=== PATIENT | female | born 1990 | race Caucasian/White ===

== ENCOUNTER 2016-12-29 06:00 | Inpatient (IN) | payer OTHER ==
--- NOTE | 2016-12-28 06:38 | P.HPOB ---
History of Present Illness H&P Date: 12/28/16 Chief Complaint: Patient is presenting for repeat section and tubal ligation. This patient is a pleasant 26-year-old 2 para 1 female estimated date of confinement 01/01/2017 estimated gestational age 39-4/7 weeks gestation who presents to labor and delivery for repeat section is also requesting tubal ligation. Patient's history is such that she presented to me for care in June. She had her first elsewhere and had a macrosomic and I had concerns for undiagnosed gestational diabetes with that . Patient apparently never had glucose testing that . Testing this has shown she does have gestational diabetes and she's been managed by maternal medicine and was placed on insulin. Patient's been followed by them for testing as well as here and now she is presenting for requested repeat section and she also wants permanent sterilization. Patient's has also been complicated by tobacco use. Review of Systems Constitutional: Denies chills, Denies fever Cardiovascular: Denies chest pain, Denies shortness of breath Respiratory: Denies cough Gastrointestinal: Reports heartburn Genitourinary: Reports Menstruation: Reports amenorrhea Past Medical History Past Medical History: Asthma, GERD/Reflux, Thyroid Disorder Additional Past Medical History / Comment(s): gestational diabetes insulin- dependent., kidney stones History of Any Multi-Drug Resistant Organisms: None Reported Past Surgical History: Section, Cholecystectomy Additional Past Surgical History / Comment(s): stent for kidney stones Past Anesthesia/Blood Transfusion Reactions: Family History of Problems w/ Anesthesia Additional Past Anesthesia/Blood Transfusion Reaction / Comment(s): brother- hard time waking up Past Psychological History: No Psychological Hx Reported Smoking Status: Current every day smoker Past Alcohol Use History: None Reported Past Drug Use History: None Reported - Past Family History Mother Family Medical History: No Reported History Medications and Allergies Home Medications Medication Instructions Recorded Confirmed Type No Known Home Medications [No 12/27/16 12/27/16 History Known Home Medications] Allergies Allergy/AdvReac Type Severity Reaction Status Date / Time Penicillins Allergy throat Verified 12/27/16 14:13 swells, diff breathing Exam - Vital Signs Vital signs: Intake and Output 12/27/16 12/27/16 12/28/16 14:59 22:59 06:59 Other: Weight 110.677 kg Patient Weight 12/28/16 06:59 Weight 110.677 kg - OBG Physical Exam Abdomen: bowel sounds normal (Obese), no diffuse tenderness, no bruit present, no guarding noted, no hepatomegaly, no splenomegaly, no mass Vulva: both: normal Vagina: normal moisture, no discharge Uterus: enlarged (Fundal height in the office was 43 cm) Results blood work shows she is A positive, rubella immune, RPR nonreactive, hepatitis B negative, HIV nonreactive, group B strep was negative, Glucola and three-hour GTT were abnormal, most recent ultrasound by maternal medicine showed a macrosomic with polyhydramnios. Patient's had normal biophysical profiles and nonstress testing. Assessment and Plan Assessment: This is a pleasant 26-year-old 2 para 1 female 39-4/7 weeks gestation with insulin-dependent gestational diabetes, previous section desires repeat section and permanent sterilization. Patient also has some issues with compliance and tobacco use. Plan is repeat low transverse section and bilateral partial salpingectomy. This patient does understand that a tubal ligation is a permanent procedure however there is a failure rate of approximately 20 per thousand procedures done. Patient also understands that surgery itself has risks including risks of infection, bleeding, possibility of bowel, bladder, vessels, and other organs. She understands she is at increased risk of surgical complications secondary to her diabetes and obesity. Patient understands risk of DVT and pulmonary embolism. All the patient's questions have been answered and a written consent is obtained. (1) Previous delivery affecting Status: Acute Code(s): O34.219 - MATERNAL CARE FOR UNSP TYPE SCAR FROM PREVIOUS DEL SNOMED Code(s): 312587930 (2) Gestational diabetes Status: Acute Code(s): O24.419 - GESTATIONAL DIABETES MELLITUS IN , UNSP CONTROL SNOMED Code(s): 93065604 (3) Family planning advice Status: Acute Code(s): Z30.09 - ENCOUNTER FOR OTH GENERAL CNSL AND ADVICE ON CONTRACEPTION SNOMED Code(s): 46960786
[2016-12-29 06:23] LABS: Glucose,Whole Blood 98 mg/dL (75-99)
[2016-12-29] MEDS ORDERED: LACTATED RINGERS 1,000 ML IV ONE (06:24)
[2016-12-29] MEDS ORDERED: LACTATED RINGERS 1,000 ML IV SCH (06:24)
[2016-12-29] MEDS ORDERED: CITRIC ACID-SODIUM CITRATE 15 ML CUP PO ONE (06:24)
[2016-12-29 06:30] VITALS: BMI 44.4
[2016-12-29 07:03] LABS: Basophils % (A) 0 %; CH 30.1; CHCM 33.3; Eosinophils # (A) 0.1 k/uL (0-0.7); Eosinophils % (A) 1 %; HCT 34.7 % (34.0-46.0); HDW 3.06; HGB 11.4 gm/dL (11.4-16.0); Luc # (Auto) 0.11; Luc % (Auto) 1; Lymphocytes # (A) 3.1 k/uL (1.0-4.8); Lymphocytes % (A) 30 %; MCH 29.9 pg (25.0-35.0); MCHC 32.8 g/dL (31.0-37.0); MCV 91.2 fL (80.0-100.0); Monocytes # (A) 0.6 k/uL (0-1.0); Monocytes % (A) 6 %; Neutrophils # (A) 6.5 k/uL (1.3-7.7); Neutrophils % (A) 62 %; RDW 15.7 % (11.5-15.5); WBC 10.5 k/uL (3.8-10.6); WBC (Perox) 11.04
[2016-12-29] MEDS: CLINDAMYCIN 900 MG in DEXTROSE 5% IN WATER 50 ML IVPB SCH ×6 (07:19→22:53)
[2016-12-29] MEDS ORDERED: ePHEDrine SULFATE/0.9% NACL/PF 50 MG/5 ML SYRINGE IV ONE (07:44)
[2016-12-29] MEDS ORDERED: ONDANSETRON 4 MG/2 ML VIAL ONE (07:44)
[2016-12-29] MEDS ORDERED: OXYTOCIN 10 UNIT/ML 1 ML VIAL ONE (07:44)
[2016-12-29] MEDS ORDERED: LACTATED RINGERS 1,000 ML BAG IV ONE (07:44)
[2016-12-29] MEDS ORDERED: MORPHINE SULFATE (PF) 0.3 MG/0.3 ML SYR ONE (07:44)
[2016-12-29] MEDS ORDERED: NALBUPHINE 10 MG/ML AMPUL ONE (07:44)
--- NOTE | 2016-12-29 08:42 | P.OP ---
Date of Procedure: 12/29/16 Preoperative Diagnosis: #1: 39-4/7 week . #2 previous low transverse section desires repeat #3: Multi parity desires permanent sterilization #4: Gestational diabetes , insulin-dependent Postoperative Diagnosis: Same Procedure(s) Performed: Repeat low transverse section and bilateral partial salpingectomy. Anesthesia: spinal Surgeon: Jone Boswell Lobby Concierge #1: Fabian Regalado Estimated Blood Loss (ml): 600 Pathology: other (Placenta and bilateral fallopian tube segments) Condition: stable Disposition: floor Indications for Procedure: Please see dictated H&P for intimate details of this patient's admission. In brief summary this is a pleasant 26-year-old 2 para 1 female 39-4/7 weeks gestation who is admitted to labor and delivery for elective repeat section and tubal ligation. Patient does understand that a tubal ligation is a permanent procedure however there is approximately 20 out of 1000 chance of failure. Patient understands surgery itself has risks including risks of infection, bleeding, possible injury bowel, bladder, vessels, and/or other organs. Patient understands risk of DVT and pulmonary embolism. All the patient's questions are answered and a written consent was obtained Operative Findings: This is a vigorous viable male infant Apgars 8 and 9 at 0810 hrs. 's weight was 4530 g or 10 pounds. Description of Procedure: This patient has a Rutledge catheter placed to straight drain. She subsequently taken to the operating room where she sat up and spinal anesthetic is administered without incident. With an adequate level of anesthesia she has abdominal prep and drape. At this time I look at her abdomen she has a previous incision is up fairly high so we make this incision the usual position of a Pfannenstiel skin incision. A second scalpel is taken down the fascia and the fascia scored with a knife. Fascial incision extended bilaterally using the Jaramillo scissors. Fascia is dissected off the rectus muscles sharply. Rectus muscles are already the peritoneum was identified and entered sharply. Peritoneal incision extended superior and inferior without difficulty. Bladder peritoneum was then taken down sharply. Scalpels and taken a low transverse uterine incision is then made. At this time is a loss of a large amount of amniotic fluid. The infant's head is then guided to the incision with fundal pressure delivered. Mouth and nares are bulb suctioned and there is no evidence of a nuchal cord. We then have delivery anterior posterior shoulder and rest this 's body. This is a vigorous viable male infant Apgars are 8 and 9 delivery time was 0810 hours. After delivery of the infant the umbilical cord is doubly clamped and cut infant is handed off to the nurses in attendance. The placenta is then manually extracted intact. Uterus is then externalized and uterine incision demarcated with Mckeon clamps. Uterine incision then closed using 0 Vicryl running locked fashion 2 layers. Excellent hemostasis is noted I then turned my attention a left fallopian tube and approximately 4 cm from the cornual insertion a small window is made to the mesial salpinx with Bovie cautery. Using a 2-0 silk I doubly ligate a piece the tube on each side and a 1-2 cm segment of the tube was excised. Cauterization is then done of the tubal ends and excellent hemostasis is noted. Turned my attention of the right fallopian tube and using a similar technique as segment of the right fallopian tube was removed. With this done the excess fluid is removed from the abdomen and pelvis uterus placed back into the abdomen inspect the tubes once again there are still hemostatic and so was the uterine incision. The parietal peritoneum was then identified and closed using 0 Vicryl running fashion. The rectus muscles are reapproximated in 0 Vicryl interrupted fashion. The fascia is then closed using 0 PDS. Fascial incision is intact and hemostatic. Subcutaneous tissues and closed using a 3-0 Vicryl. Skin is and closed using chastity. All counts are correct 3. There are no complications. Infant and mother are taken birthing suite in satisfactory condition.
[2016-12-29] MEDS ORDERED: SIMETHICONE 80 MG CHEWABLE PO PRN (08:50)
[2016-12-29] MEDS ORDERED: OXYTOCIN 20 UNITS/1000 ML NS 1,000 ML IV SCH (08:50)
[2016-12-29] MEDS ORDERED: ACETAMINOPHEN TAB 325 MG TAB PO PRN (08:50)
[2016-12-29] MEDS ORDERED: diphenhydrAMINE 25 MG CAP PO PRN (08:50)
[2016-12-29] MEDS ORDERED: Acetaminophen-Codeine 300-30mg TAB PO PRN ×2 (08:50)
[2016-12-29] MEDS ORDERED: ONDANSETRON 4 MG/2 ML VIAL IVP PRN (08:50)
[2016-12-29] MEDS ORDERED: NALOXONE 0.4 MG/ML 1 ML VIAL IV PRN ×2 (08:50→12:38)
[2016-12-29] MEDS ORDERED: METOCLOPRAMIDE 5 MG/ML 2 ML VIAL IVP PRN ×2 (08:50→12:38)
[2016-12-29] MEDS ORDERED: ZOLPIDEM 5 MG TAB PO PRN (08:50)
[2016-12-29] MEDS ORDERED: diphenhydrAMINE 50 MG/ML 1 ML VIAL IVP PRN ×2 (08:50→12:38)
[2016-12-29] MEDS: SENNOSIDES-DOCUSATE SODIUM 1 EACH TAB PO SCH ×2 (09:53→19:56)
[2016-12-29] MEDS: LACTATED RINGERS 1,000 ML IV SCH ×2 (09:53→18:44)
[2016-12-29 11:11] LABS: ALT 25 U/L (9-52); AST 16 U/L (14-36); Blood Urea Nitrogen 8 mg/dL (7-17); LDH 404 U/L (313-618); Non-African American GFR(MDRD) >60 (>60 ml/min/1.73 sqM); Uric Acid 4.8 mg/dL (3.7-7.4)
[2016-12-29 11:12] LABS: Appearance,Urine Clear (Clear); Bilirubin,Urine Negative (Negative); Glucose,Urine (UA) Negative (Negative); Ketones,Urine Negative (Negative); Leukocyte Esterase,Urine Moderate (Negative); Nitrite,Urine Negative (Negative); Particle Count 826; Protein,Urine Negative (Negative); RBC,Urine 1 /hpf (0-5); Specific Gravity,Urine 1.006 (1.001-1.035); UA Billing (MACRO vs. MICRO) MICRO; Urobilinogen,Urine <2.0 mg/dL (<2.0); WBC,Urine 36 /hpf (0-5)
[2016-12-29] MEDS ORDERED: KETOROLAC 30 MG/ML 1 ML VIAL IVP PRN (12:38)
[2016-12-29] MEDS ORDERED: NALBUPHINE 10 MG/ML AMPUL IV PRN (12:38)
[2016-12-29] MEDS ORDERED: MORPHINE SULFATE 4 MG/ML SYRINGE IVP PRN (12:38)
[2016-12-29] MEDS: KETOROLAC 30 MG/ML 1 ML VIAL IVP PRN ×2 (15:53→23:06)
[2016-12-30] MEDS: LACTATED RINGERS 1,000 ML IV SCH (01:37)
[2016-12-30] MEDS: KETOROLAC 30 MG/ML 1 ML VIAL IVP PRN (07:26)
--- NOTE | 2016-12-30 07:30 | P.PNOBGPC ---
Subjective - Subjective Patient reports: Reports appetite normal, Reports voiding normally, Reports pain well controlled, Reports ambulating normally : doing well Objective - Vital Signs Latest vital signs: Vital Signs Temp Pulse Resp BP Pulse Ox 12/30/16 05:42 14 98 12/30/16 04:00 98.2 F 86 16 122/75 97 12/30/16 01:37 16 12/29/16 23:54 98.1 F 84 16 117/67 98 12/29/16 22:00 16 12/29/16 20:00 98.1 F 73 16 121/61 98 12/29/16 17:00 16 12/29/16 15:58 97.4 F L 81 20 129/82 98 12/29/16 15:30 81 12/29/16 15:28 20 98 12/29/16 13:38 17 12/29/16 12:38 16 12/29/16 12:00 97.4 F L 71 20 145/78 98 12/29/16 10:37 97.3 F L 65 132/68 98 12/29/16 10:07 81 18 156/69 12/29/16 09:37 81 18 133/65 99 12/29/16 09:22 73 17 144/69 99 12/29/16 09:07 77 16 153/70 100 12/29/16 08:52 86 18 132/66 98 12/29/16 08:37 97.2 F L 87 17 132/70 99 Intake and Output 12/29/16 12/30/16 12/30/16 22:59 06:59 14:59 Intake Total 100 Output Total 950 500 Balance -950 -400 Intake: Intake, IV Titration 100 Amount Clindamycin 900 mg In 100 Dextrose 5% in Water 50 ml @ 100 mls/hr IVPB Q8HR [facility], [facility] Rx#:[id number] Output: Urine 950 500 Other: Voiding Method Indwelling Catheter # Voids 1 - Exam Lungs: bilateral: normal Chest: Normal S1, Normal S2 Extremities: Present: normal Abdomen: Present: normal appearance, soft. Absent: distention, tenderness Incision: Present: normal, dry, intact Uterus: Present: normal, firm - Labs Labs: Abnormal Lab Results - Last 24 Hours (Table) 12/29/16 Range/Units 11:00 Ur Leukocyte Esterase Moderate H (Negative) Urine WBC 36 H (0-5) /hpf Assessment and Plan Assessment: Postoperative day #1. Patient is resting without complaints. Vital signs are stable she's afebrile. Uterus is firm nontender and her incision is intact and dry. My impression this is a normal postoperative course. Plan is check a CBC today. Encourage ambulation, and continue routine postoperative care. (1) Previous delivery affecting Current Visit: Yes Status: Acute Code(s): O34.219 - MATERNAL CARE FOR UNSP TYPE SCAR FROM PREVIOUS DEL SNOMED Code(s): 686160966 (2) Gestational diabetes Current Visit: Yes Status: Acute Code(s): O24.419 - GESTATIONAL DIABETES MELLITUS IN , UNSP CONTROL SNOMED Code(s): 73695397 (3) Family planning advice Current Visit: Yes Status: Acute Code(s): Z30.09 - ENCOUNTER FOR OTH GENERAL CNSL AND ADVICE ON CONTRACEPTION SNOMED Code(s): 46633657
[2016-12-30 08:03] LABS: Basophils % (A) 0 %; CH 29.7; CHCM 33.3; Eosinophils # (A) 0.1 k/uL (0-0.7); Eosinophils % (A) 1 %; HCT 30.3 % (34.0-46.0); HDW 3.05; Luc # (Auto) 0.09; Luc % (Auto) 1; Lymphocytes # (A) 2.2 k/uL (1.0-4.8); Lymphocytes % (A) 24 %; MCH 29.6 pg (25.0-35.0); MCHC 32.9 g/dL (31.0-37.0); MCV 89.7 fL (80.0-100.0); Mean Platelet Volume 8.9; Monocytes # (A) 0.5 k/uL (0-1.0); Monocytes % (A) 6 %; Neutrophils # (A) 6.3 k/uL (1.3-7.7); Neutrophils % (A) 69 %; RBC 3.38 m/uL (3.80-5.40); RDW 15.1 % (11.5-15.5); WBC 9.1 k/uL (3.8-10.6)
[2016-12-30] MEDS: SENNOSIDES-DOCUSATE SODIUM 1 EACH TAB PO SCH ×2 (09:06→19:52)
--- NOTE | 2016-12-30 13:44 | P.PN ---
Progress Note - Text Date:12/30 Time:1304pm Patient is status post . Patient seen this morning with VAS score of 1.no c/o of pruritus, no c/o nausea/vomiting, comfortable and doing well.
[2016-12-30] MEDS: IBUPROFEN 600 MG TAB PO PRN ×2 (14:19→23:43)
--- NOTE | 2016-12-31 07:14 | P.PNOBGPC ---
Subjective - Subjective Patient reports: Reports appetite normal, Reports voiding normally, Reports pain well controlled, Reports ambulating normally : doing well Objective - Vital Signs Latest vital signs: Vital Signs Temp Pulse Resp BP Pulse Ox 12/31/16 00:00 97.3 F L 83 16 134/82 12/30/16 16:00 98.0 F 89 16 133/79 98 12/30/16 10:00 18 12/30/16 08:00 98.2 F 82 16 104/69 96 Intake and Output 12/30/16 12/31/16 12/31/16 22:59 06:59 14:59 Other: # Voids 1 1 - Exam Lungs: bilateral: normal Chest: Normal S1, Normal S2 Extremities: Present: normal Abdomen: Present: normal appearance, soft. Absent: distention, tenderness Incision: Present: normal, dry, intact Uterus: Present: normal, firm - Labs Labs: Abnormal Lab Results - Last 24 Hours (Table) 12/30/16 Range/Units 07:44 RBC 3.38 L (3.80-5.40) m/uL Hgb 10.0 L (11.4-16.0) gm/dL Hct 30.3 L (34.0-46.0) % Assessment and Plan Assessment: Post operative day #2. Patient is resting without complaints and wishes to go home. Vital signs are stable she is afebrile. Uterus is firm nontender and she is having normal lochia. Her incision is intact and dry. My impression is that this is a normal post operative course. Plan is to continue routine postoperative care discharge home later today (1) Previous delivery affecting Current Visit: Yes Status: Acute Code(s): O34.219 - MATERNAL CARE FOR UNSP TYPE SCAR FROM PREVIOUS DEL SNOMED Code(s): 016458241 (2) Gestational diabetes Current Visit: Yes Status: Acute Code(s): O24.419 - GESTATIONAL DIABETES MELLITUS IN , UNSP CONTROL SNOMED Code(s): 62141151 (3) Family planning advice Current Visit: Yes Status: Acute Code(s): Z30.09 - ENCOUNTER FOR OTH GENERAL CNSL AND ADVICE ON CONTRACEPTION SNOMED Code(s): 50842386
--- NOTE | 2016-12-31 07:17 | P.DS ---
Providers Date of admission: 12/29/16 06:00 Expected date of discharge: 12/31/16 Attending physician: Jone Boswell Primary care physician: Stated None - Discharge Diagnosis(es) (1) Previous delivery affecting Current Visit: Yes Status: Acute (2) Gestational diabetes Current Visit: Yes Status: Acute (3) Family planning advice Current Visit: Yes Status: Acute Hospital Course: Please see dictated H&P for intimate details of this patient's admission. Brief summary this is a pleasant 26-year-old 2 para 1 female 39-1/2 weeks gestation admitted for repeat section and tubal ligation. Patient is admitted undergoes above-named surgery. Postoperatively were 2 patient's felt be stable for discharge home follow up with me in 1 week. Procedures: Repeat low transverse section and bilateral partial salpingectomy. Patient Condition at Discharge: Good Plan - Discharge Summary New Discharge Prescriptions: New Acetaminophen-Codeine 300-30mg [Tylenol w/codeine #3] 1 - 2 each PO Q4HR PRN #30 tab PRN Reason: Mild Pain Ibuprofen [Motrin] 600 mg PO Q6HR PRN #40 tab PRN Reason: Mild Pain Or Fever >= 100.5 No Action Insulin NPH Human Isophane [NovoLIN N] 100 units SQ ONCE Pnv,Calcium 72/Iron/Folic Acid [ Plus Tablet] 1 tab PO ONCE Discharge Medication List Insulin NPH Human Isophane [NovoLIN N] 100 units SQ ONCE 12/29/16 [History] Pnv,Calcium 72/Iron/Folic Acid [ Plus Tablet] 1 tab PO ONCE 12/29/16 [ History] Acetaminophen-Codeine 300-30mg [Tylenol w/codeine #3] 1 - 2 each PO Q4HR PRN # 30 tab 12/31/16 [Rx] Ibuprofen [Motrin] 600 mg PO Q6HR PRN #40 tab 12/31/16 [Rx] Follow up Appointment(s)/Referral(s): Jone Boswell MD [STAFF PHYSICIAN] - 01/08/17 8:45 am (Please see me also on January 31 at 1045 for a visit.) Patient Instructions/Handouts: (DC) Activity/Diet/Wound Care/Special Instructions: No heavy lifting or strenuous activity for 6 weeks. Please call if any fever, chills, excessive vaginal bleeding, and/or abdominal pain.
[2016-12-31] MEDS: IBUPROFEN 600 MG TAB PO PRN (07:45)
[2016-12-31] MEDS: SENNOSIDES-DOCUSATE SODIUM 1 EACH TAB PO SCH (08:37)
[2016-12-31 09:05] VITALS: BP 134/77; PULSE 86; RESP 18; TEMP 98.5
== END 2016-12-31 10:45 | disposition home or self-care (01) | DRG 540 ==
LOC: 4FBP 06:00
PROVIDERS: ADMIT Obstetrics & Gynecology; ATTEND Obstetrics & Gynecology
PROC: 0UB70ZZ Excision of Bilateral Fallopian Tubes, Open Approach (ICD-10-PCS; principal; 2016-12-29 08:07)
PROC: 10D00Z1 Extraction of Products of Conception, Low, Open Approach (ICD-10-PCS; principal; 2016-12-29 08:07)
DX: O34.211 Maternal care for low transverse scar from previous cesarean delivery (principal); O24.424 Gestational diabetes mellitus in childbirth, insulin controlled; F17.200 Nicotine dependence, unspecified, uncomplicated; Z37.0 Single live birth; O99.334 Smoking (tobacco) complicating childbirth; Z88.0 Allergy status to penicillin; O99.214 Obesity complicating childbirth; Z3A.39 39 weeks gestation of pregnancy; Z30.2 Encounter for sterilization
CPT/HCPCS: 81001; 82565; 83036; 83615; 84450; 84460; 84520; 84550; 85025; 86850; 86900; 86901; 88302; 88307